=== PATIENT | female | born 1950 | race Caucasian/White ===

== ENCOUNTER 2017-12-07 17:33 | Emergency (ER) | payer MEDICARE, OTHER ==
[~2017-12-07] VITALS: Ht 172.7 cm; Wt 124.7 kg
[~2017-12-07 17:33] MED LIST: DIPH50 PO; DIPHTC TP; DOCU100 PO; FLUV50 PO; FURO20; HYDACE10B; MECL25 PO; NAPR220 PO; NAPR500 PO; NAPR550 PO; NSAID; OXYACE5T PO; OXYC15ER PO; OXYC5 PO; POTCHL10ER; PRED20 PO; Prinivil10 MG PO; RANI150 PO; VALS80; VALS80 PO
[2017-12-07 18:23] LABS: BASOPHILS ABSOLUTE AUTO 0.05 K/mm3 (0.00-0.23); BASOPHILS PERCENT AUTO 1 % (0-2); EOSINOPHILS ABSOLUTE AUTO 0.19 K/mm3 (0.00-0.68); EOSINOPHILS PERCENT AUTO 3 % (0-6); Hematocrit 38.8 % (33.0-51.0); Hemoglobin 12.1 g/dL (11.5-16.0); IMMATURE GRAN ABSOLUTE AUTO 0.01 K/mm3 (0.00-0.10); IMMATURE GRAN PERCENT AUTO 0 % (0-1); LYMPHOCYTES ABSOLUTE AUTO 1.04 K/mm3 (0.84-5.20); LYMPHOCYTES PERCENT AUTO 19 % (21-46); MONOCYTES ABSOLUTE AUTO 0.42 K/mm3 (0.16-1.47); MONOCYTES PERCENT AUTO 8 % (4-13); Mean Corpuscular HGB 25.7 pg (26.0-34.0); Mean Corpuscular HGB Conc 31.2 g/dL (31.5-36.5); Mean Corpuscular Volume 82 fL (80-100); Mean Platelet Volume 9.8 fL (9.1-12.4); NEUTROPHILS ABSOLUTE AUTO 3.88 K/mm3 (1.96-9.15); NEUTROPHILS PERCENT AUTO 69 % (41-73); Platelet Count 261 K/mm3 (150-400); RDW Coefficient Variation 14.6 % (11.7-14.2); RDW Standard Deviation 44.3 fL (35.1-46.3); Red Blood Cell Count 4.71 M/mm3 (3.80-5.20); White Blood Cell Count 5.59 K/mm3 (4.00-11.30)
[2017-12-07 18:41] LABS: Alanine Aminotransfer (ALT/SGP 22 U/L (12-78); Albumin, Blood 3.9 g/dL (3.4-5.0); Albumin/Globulin Ratio 1.1 (0.8-1.8); Alk Phos 57 U/L (50-136); Anion Gap 6 mmol/L (6-16); Aspartate Aminotrans (AST/SGOT 19 U/L (12-37); Blood Urea Nitrogen 21 mg/dL (8-24); Bun/Creatinine Ratio 28.6 (12.0-20.0); CO2, Blood 29 mmol/L (21-32); Calcium, Blood 9.1 mg/dL (8.5-10.1); Chloride, Blood 104 mmol/L (98-108); Creatinine, Blood 0.73 mg/dL (0.40-1.00); Globulin, Blood 3.6 g/dL (2.2-4.0); Glomerular Filtration Rate >60 (60-); Glucose, Blood 94 mg/dL (70-99); Potassium, Blood 3.9 mmol/L (3.5-5.5); Sodium, Blood 139 mmol/L (136-145); Total Protein, Blood 7.5 g/dL (6.4-8.2); Troponin I <0.015 ng/mL (0.000-0.040)
== END 2017-12-07 21:23 | disposition home or self-care (01) ==
LOC: ER 17:33
PROVIDERS: Emergency Medicine
DX: R07.9 Chest pain, unspecified (principal); M25.512 Pain in left shoulder; R20.2 Paresthesia of skin; G89.29 Other chronic pain; Z79.899 Other long term (current) drug therapy
CPT/HCPCS: 71046; 80053; 84484; 85025; 93005; 93010; 99283

== ENCOUNTER 2020-05-17 10:13 | Day surgery (SDC) | payer OTHER ==
[~2020-05-17] VITALS: Ht 170.2 cm; Wt 113.4 kg
[~2020-05-17 10:13] MED LIST changes: +ALLER-TEC PO; +COMBIVENT RESPIM4 G1 INH; +ERGO400 PO; +FLUT.05NI; -FURO20; +FURO20 PO; -POTCHL10ER; +POTCHL10ER PO; +PROBIOTIC PO; +VITAMIN B125000 MC1 PO
--- NOTE | 2020-05-17 11:18 | NUR ---
05/17/20 1118 IRENE FISH History, Chart, Medications and Allergies reviewed before start of procedure. 3-LEAD EKG REVIEWED WITH PHYSICIAN PRIOR TO START OF PROCEDURE. O2 VIA N/C INTACT THROUGHOUT SEDATION/PROCEDURE. MONITOR INTACT WITH CONTINUOUS PULSE OXIMETRY AND INTERMITTENT BP. MAC WITH DR. GALICIA.
== END 2020-05-17 12:36 | disposition home or self-care (01) ==
LOC: ORSCMMR 10:13 → ORD 11:15 → ORSCMMR 12:36
PROVIDERS: Internal Medicine Gastroenterology
PROC: 0DBK8ZX Excision of Ascending Colon, Via Natural or Artificial Opening Endoscopic, Diagnostic (ICD-10-PCS; principal; 2020-05-17 11:15)
DX: Z12.11 Encounter for screening for malignant neoplasm of colon (principal); Z86.010 Personal history of colon polyps; D12.2 Benign neoplasm of ascending colon; I10 Essential (primary) hypertension; G47.30 Sleep apnea, unspecified; Z79.899 Other long term (current) drug therapy; E66.9 Obesity, unspecified; Z68.39 Body mass index [BMI] 39.0-39.9, adult
CPT/HCPCS: 88305; J2704; J7120

== ENCOUNTER 2020-08-07 06:31 | Day surgery (SDC) | payer OTHER ==
[~2020-08-07] VITALS: Ht 170.2 cm; Wt 113.3 kg
[2020-08-07 07:53] LABS: Albumin, Blood 3.8 g/dL (3.4-5.0); Anion Gap 4 mmol/L (6-16); Blood Urea Nitrogen 21 mg/dL (8-24); Bun/Creatinine Ratio 18.4 (12.0-20.0); CO2, Blood 29 mmol/L (21-32); Calcium, Blood 9.5 mg/dL (8.5-10.1); Chloride, Blood 106 mmol/L (98-108); Creatinine, Blood 1.14 mg/dL (0.40-1.00); Glomerular Filtration Rate 50 (60-); Glucose, Blood 101 mg/dL (70-99); Phosphorus, Blood 3.3 mg/dL (2.5-4.9); Potassium, Blood 4.1 mmol/L (3.5-5.5); Sodium, Blood 139 mmol/L (136-145)
--- NOTE | 2020-08-07 08:22 | NUR ---
Ambulatory in Day Surgery. Surgical site prepped with 2% Chlorhexidine cloth wipe. History, Chart, Medications and Allergies reviewed before start of procedure.Lungs clear T/O to Auscultation. Patient confirms NPO status and agrees with scheduled surgery. Pre-Op teaching done. Pt verbalizes understanding. Patient States Post-Procedure ride home has been arranged. Patient reports completing Chlorhexadine shower X2 prior to admission to hospital.
--- NOTE | 2020-08-07 13:11 | NUR ---
PT ARRIVED ON UNIT AT 1209 TODAY ON 08/07/2020. SHE CAME IN FOR A RIGHT KNEE REPAIR. SHE WAS ALERT AND ORIENTED X3 WHEN COMING BACK. SHE CAME BACK TO THE UNIT DROWSY BUT WAS ABLE TO ANSWER SOME QUESTIONS WHEN WOKEN UP. SHE IS EASILY AROUSABLE. SHE CAME BACK ON 3L OF OXYGEN SINCE SHE HAS A HX OF COPD AND IS SHALLOW BREATHING WHEN SLEEPING. VITAL SIGNS ARE WNL. BED ALARM IS ON SINCE SHE CAN BE FORGETFUL OF LIMITATIONS. FRIEND IS IN THE ROOM WITH HER AT THE MOMENT. PT IS LAYING IN BED WITH OXYGEN ON AND SLEEPING. CALL LIGHT IS WITHIN REACH. FOR PAIN CONTROL TORADOL HAS BEEN GIVEN SO FAR. WILL CONTINUE TO MONITOR PAIN MANAGEMENT AND OXYGEN LEVELS.
--- NOTE | 2020-08-07 18:33 | NUR ---
SHIFT SUMMARY: POD 0 RIGHT KNEE REPLACEMENT PT IS ALERT AND ORIENTED X4 NOW THAT SHE WAS ABLE TO SLEEP MORE POST OP. HER VITALS ARE WNL AND IS CURRENTLY ON RA. PAIN HAS BEEN MANAGED WITH 2 TABS OF OXY, TORADOL, AND TYLENOL. SHE WAS ABLE TO MOVE INTO THE BATHROOM WITH PHYSICAL THERAPY. SHE USES A FWW AND IS A SBA. HER CAMILO WRAP AND AQUACEL ARE C/D/I. HER HEMOVAC HAS DARK RED BLOOD IN IT. SHE HAS TOLERATED PO INTAKE AND HAS VOIDED. CALL LIGHT IS WITHIN REACH. PT IS CURRENTLY IN THE CHAIR TALKING TO HER SON. THE PLAN IS TO CONTINUE TO WORK WITH PHYSICAL THERAPY AND MANAGE PAIN.
[2020-08-08 04:41] LABS: BASOPHILS ABSOLUTE AUTO 0.03 K/mm3 (0.00-0.23); BASOPHILS PERCENT AUTO 0 % (0-2); EOSINOPHILS ABSOLUTE AUTO 0.03 K/mm3 (0.00-0.68); EOSINOPHILS PERCENT AUTO 0 % (0-6); Hematocrit 33.3 % (33.0-51.0); Hemoglobin 10.2 g/dL (11.5-16.0); IMMATURE GRAN ABSOLUTE AUTO 0.04 K/mm3 (0.00-0.10); IMMATURE GRAN PERCENT AUTO 0 % (0-1); LYMPHOCYTES ABSOLUTE AUTO 0.83 K/mm3 (0.84-5.20); LYMPHOCYTES PERCENT AUTO 7 % (21-46); MONOCYTES ABSOLUTE AUTO 0.76 K/mm3 (0.16-1.47); MONOCYTES PERCENT AUTO 6 % (4-13); Mean Corpuscular HGB 25.4 pg (26.0-34.0); Mean Corpuscular HGB Conc 30.6 g/dL (31.5-36.5); Mean Corpuscular Volume 83 fL (80-100); NEUTROPHILS ABSOLUTE AUTO 10.43 K/mm3 (1.96-9.15); NEUTROPHILS PERCENT AUTO 86 % (41-73); Platelet Count 279 K/mm3 (150-400); RDW Coefficient Variation 14.2 % (11.7-14.2); RDW Standard Deviation 43.1 fL (35.1-46.3); Red Blood Cell Count 4.02 M/mm3 (3.80-5.20); White Blood Cell Count 12.12 K/mm3 (4.00-11.30)
--- NOTE | 2020-08-08 04:48 | NUR ---
SHIFT SUMMARY PT A/O X4. SBA WITH FWW TO AMBULATE AND UP TO BATHROOM. PT RESTED IN RECLINER CHAIR FOR MOST OF THE NIGHT AND WENT TO BED AROUND 0400. PT TOLERATING PO INTAKE W/O NAUSEA. PT VOIDING. PAIN MANAGED WITH OXY X2 Q4 PER ORDERS. DRESSING TO R KNEE CDI WITH HEMOVAC IN PLACE; TOTAL OF 60ML EMPTIED FROM HEMOVAC THIS SHIFT. PT RESTING WITH CALL LIGHT IN REACH AT THIS TIME.
[2020-08-08 05:02] LABS: Calcium, Blood 8.7 mg/dL (8.5-10.1); Creatinine, Blood 1.6 mg/dL (0.40-1.00); Potassium, Blood 4.5 mmol/L (3.5-5.5)
[2020-08-08] MEDS ORDERED: Aspir 8181 MG PO (09:55)
--- NOTE | 2020-08-08 11:39 | NUR ---
DISCHARGE PT DISCHARGED HOME FROM UNIT AT APROX 1140. PT GIVEN WRITTEN AND VERBAL DISCHARGE INSTRUCTIONS AND VERBALIZED UNDERSTANDING OF THESE INSTRUCTIONS. IV REMOVED, PT TOLERATED WELL. WHEELCHAIR TO CAR.
--- NOTE | 2020-08-09 09:51 | NUR ---
08/09/20 0951 Laverne Aldridge VERIFICATIONS: EDIT CHART.
== END 2020-08-08 11:41 | disposition home or self-care (01) ==
LOC: ORSCMMR 06:31 → ORD 08:15 → SURS 11:59 → ORSCMMR 08-08 11:41 → SURS 08-08 11:41
PROVIDERS: Orthopaedic Surgery
PROC: 8E0YXBZ Computer Assisted Procedure of Lower Extremity (ICD-10-PCS; principal; 2020-08-07 08:15)
PROC: 0SRC0JA Replacement of Right Knee Joint with Synthetic Substitute, Uncemented, Open Approach (ICD-10-PCS; principal; 2020-08-07 08:15)
DX: M17.11 Unilateral primary osteoarthritis, right knee (principal); I10 Essential (primary) hypertension; F41.8 Other specified anxiety disorders; J44.9 Chronic obstructive pulmonary disease, unspecified; G47.33 Obstructive sleep apnea (adult) (pediatric); Z86.73 Personal history of transient ischemic attack (TIA), and cerebral infarction without residual deficits; E66.9 Obesity, unspecified; Z68.39 Body mass index [BMI] 39.0-39.9, adult; Z79.82 Long term (current) use of aspirin; Z79.899 Other long term (current) drug therapy
CPT/HCPCS: 36415; 73560-RT; 80048; 80069; 85025; 88300; 97110; 97116; 97162; A9270; A9270-GY; C1776; J0171; J0690; J0735; J1100; J1885; J2250; J2405; J2704; J2795; J3010; J7120; Q0163

== ENCOUNTER 2022-02-25 07:10 | Day surgery (SDC) | payer OTHER ==
[~2022-02-25] VITALS: Ht 177.8 cm; Wt 103.8 kg
[~2022-02-25 07:10] MED LIST changes: +Aspir 8181 MG PO; +FERSU300 PO; +Lisinopril-Hct1 EAC4 PO; +MULVITA PO; +POTA10T PO; +TRAM50 PO; +VITAMIN D310 MC4 PO
[2022-02-25] MEDS ORDERED: ATOR10 PO (07:33)
[2022-02-25] MEDS ORDERED: OXYC10TA19 PO (12:18)
[2022-02-25] MEDS ORDERED: TIZA4 PO (12:19)
--- NOTE | 2022-02-25 16:29 | NUR ---
SHIFT SUMMARY PATIENT NEW ADMIT TO UNIT POST OP L TKA. INITIALLY CONFUSED AND ANXIOUS IN ROOM BUT MENTATION CLEARED WITHIN 30 MINUTES. VSS. TOLERATING PO INTAKE, SALINE LOCKED. NO VOID AT THIS TIME. UP TO CHAIR WITH PHYSICAL THERAPY. LEFT KNEE WITH AQUACEL, CAMILO WRAP C/D/I. PLAN TO DISCHARGE HOME TOMORROW 02/26/22.
[2022-02-26 04:39] LABS: BASOPHILS ABSOLUTE AUTO 0.02 K/mm3 (0.00-0.23); BASOPHILS PERCENT AUTO 0 % (0-2); EOSINOPHILS ABSOLUTE AUTO 0.01 K/mm3 (0.00-0.68); EOSINOPHILS PERCENT AUTO 0 % (0-6); Hematocrit 28.1 % (33.0-51.0); Hemoglobin 9.1 g/dL (11.5-16.0); IMMATURE GRAN ABSOLUTE AUTO 0.01 K/mm3 (0.00-0.10); IMMATURE GRAN PERCENT AUTO 0 % (0-1); LYMPHOCYTES ABSOLUTE AUTO 0.62 K/mm3 (0.84-5.20); LYMPHOCYTES PERCENT AUTO 7 % (21-46); MONOCYTES ABSOLUTE AUTO 0.54 K/mm3 (0.16-1.47); MONOCYTES PERCENT AUTO 6 % (4-13); Mean Corpuscular HGB Conc 32.4 g/dL (31.5-36.5); Mean Corpuscular Volume 83 fL (80-100); Mean Platelet Volume 10.4 fL (9.1-12.4); NEUTROPHILS ABSOLUTE AUTO 7.41 K/mm3 (1.96-9.15); NEUTROPHILS PERCENT AUTO 86 % (41-73); Platelet Count 180 K/mm3 (150-400); RDW Coefficient Variation 12.8 % (11.7-14.2); RDW Standard Deviation 39.3 fL (35.1-46.3); Red Blood Cell Count 3.37 M/mm3 (3.80-5.20); White Blood Cell Count 8.61 K/mm3 (4.00-11.30)
[2022-02-26 04:59] LABS: Bun/Creatinine Ratio 17.1 (12.0-20.0); Calcium, Blood 8.6 mg/dL (8.5-10.1); Creatinine, Blood 1.99 mg/dL (0.40-1.00); Potassium, Blood 4.3 mmol/L (3.5-5.5)
--- NOTE | 2022-02-26 05:34 | NUR ---
POD 1 S/PO L TKA. PT VSS T/O NIGHT. DRESSING CDI. PAIN MGD PER EMAR W/REP RELIEF. PT ALEX REG PO, DENIED N/V. URINE OUTPUT DECREASED (100ML) BLADDER SCAN 237 THIS AM. IVF CONT WHILE SLEEPING, PO FLUIDS ENC. PT UP IN ROOM W/FWW+SBA, ALEX WELL.
--- NOTE | 2022-02-26 09:41 | NUR ---
PT BLADDER SCAN 312ML, PT HAS PRESSURE BUT UNABLE TO VOID. REFUSED STRAIGHT CATH AT THIS TIME, REQUESTING TO "WAIT A LITTLE WHILE LONGER".
--- NOTE | 2022-02-26 10:56 | NUR ---
Pt. is alert and sittingin a recliner. Pt. is pleasant and welcomes my visit. Pt. verbalizes anticipation of discharge. Pt. displayed distress regarding family unit complications. Explored sources of relatedness and developed rapport. Explored issues of devon and belief. Pt. displayed evidence of engagement and reduced stress. Prayed with Pt. Pt. verbalized gratitude for the spiritual care visit.
[2022-02-26] MEDS ORDERED: Percocet 5-3251 EACH PO (15:19)
[2022-02-26] MEDS ORDERED: ASPI81CH PO (15:20)
--- NOTE | 2022-02-26 16:10 | NUR ---
DISCHARGE PT DISCHARGED HOME FROM UNIT AT APROX 1600. PT GIVEN WRITTEN AND VERBAL DC INSTUCTIONS AND VERBALIZED UNDERSTANDING. PT GIVEN AQUACEL DRESSINGS FOR CHANGES. WRITTEN RX FOR PAIN MEDICATION GIVEN TO PT. WC TO CAR.
== END 2022-02-26 15:59 | disposition home or self-care (01) ==
LOC: ORSCMMR 07:10 → SURS 07:10 → ORSCMMR 08:30 → SURS 11:54 → ORSCMMR 12:30 → ORD 13:45 → ORSCMMR 13:45
PROVIDERS: Orthopaedic Surgery
PROC: 0SRD0JA Replacement of Left Knee Joint with Synthetic Substitute, Uncemented, Open Approach (ICD-10-PCS; principal; 2022-02-25 08:30)
PROC: 8E0Y0CZ Robotic Assisted Procedure of Lower Extremity, Open Approach (ICD-10-PCS; principal; 2022-02-25 08:30)
DX: M17.12 Unilateral primary osteoarthritis, left knee (principal); Z96.651 Presence of right artificial knee joint; J44.9 Chronic obstructive pulmonary disease, unspecified; Z86.718 Personal history of other venous thrombosis and embolism; F41.8 Other specified anxiety disorders; G47.33 Obstructive sleep apnea (adult) (pediatric); Z86.73 Personal history of transient ischemic attack (TIA), and cerebral infarction without residual deficits; E66.9 Obesity, unspecified; Z68.37 Body mass index [BMI] 37.0-37.9, adult; I12.9 Hypertensive chronic kidney disease with stage 1 through stage 4 chronic kidney disease, or unspecified chronic kidney disease; N18.9 Chronic kidney disease, unspecified; Z79.899 Other long term (current) drug therapy; Z79.01 Long term (current) use of anticoagulants; Z79.82 Long term (current) use of aspirin
CPT/HCPCS: 27447; S2900; 36415; 73560-LT; 80048; 85025; 94640; 94664; 94760; 97110; 97116; 97161; 97530; A9270; C1713; C1776; J0171; J0690; J0735; J1100; J1170; J1885; J2250; J2370; J2405; J2704; J2795; J3010; J7120

== ENCOUNTER 2023-07-01 19:56 | Emergency (ER) | payer OTHER ==
[~2023-07-01] VITALS: Ht 170.2 cm; Wt 99.8 kg
[~2023-07-01 19:56] MED LIST changes: +ASPI81CH PO; +ATOR10 PO; +OXYC10TA19 PO; +Percocet 5-3251 EACH PO; +TIZA4 PO
[2023-07-01 20:04] VITALS: BP 135/89
== END 2023-07-01 23:25 | disposition home or self-care (01) ==
LOC: ER 19:56
DX: S01.01XA Laceration without foreign body of scalp, initial encounter (principal); S62.644A Nondisplaced fracture of proximal phalanx of right ring finger, initial encounter for closed fracture; Z79.899 Other long term (current) drug therapy; Z79.82 Long term (current) use of aspirin; W06.XXXA Fall from bed, initial encounter
CPT/HCPCS: 70450; 73130; 90471; 90715; 99284-25

== ENCOUNTER → 2025-08-11 | Outpatient (CLI) | payer OTHER ==
[2025-08-11 19:43] LABS: Creatinine, Urine Random 280.0 mg/dL (27.00-270.00); Microalbumin, Random Urine 155.0 mg/L (0.000-20.000)
== END ==
LOC: LAB SHORT 17:29 → LAB 17:29
PROVIDERS: Nurse Practitioner Family
DX: I12.9 Hypertensive chronic kidney disease with stage 1 through stage 4 chronic kidney disease, or unspecified chronic kidney disease (principal); N18.4 Chronic kidney disease, stage 4 (severe); R73.03 Prediabetes
CPT/HCPCS: 82043; 82570